=== PATIENT | male | born 1990 | race Caucasian/White ===

== ENCOUNTER 2020-07-24 18:13 | Emergency (ER) | payer BC, OTHER ==
[~2020-07-24] VITALS: Ht 177.8 cm; Wt 104.3 kg
[~2020-07-24 18:13] MED LIST: HYDACE5 PO; IBUP800 PO; LORTAB 10-3251 EACH PO; METPRE4DP PO
== END 2020-07-24 21:29 | disposition home or self-care (01) ==
LOC: ER 18:13
DX: S86.112A Strain of other muscle(s) and tendon(s) of posterior muscle group at lower leg level, left leg, initial encounter (principal); Y92.89 Other specified places as the place of occurrence of the external cause; Y99.0 Civilian activity done for income or pay
CPT/HCPCS: 76882; 99283-25

== ENCOUNTER 2024-06-13 21:23 | Emergency (ER) | payer OTHER ==
[~2024-06-13] VITALS: Ht 177.8 cm; Wt 106.6 kg
[2024-06-13 21:28] VITALS: BP 180/102
[2024-06-13] MEDS ORDERED: Diphth,Pertuss(Acell),Tet Vac 0.5 ML VIAL IM ONE (23:25)
== END 2024-06-14 00:14 | disposition home or self-care (01) ==
LOC: ER 21:23
DX: S61.432A Puncture wound without foreign body of left hand, initial encounter (principal); W29.8XXA Contact with other powered hand tools and household machinery, initial encounter
CPT/HCPCS: 73130; 90471; 90715; 99283-25